=== PATIENT | female | born 1965 | race Caucasian/White ===

== ENCOUNTER → 2017-09-14 | Outpatient (CLI) | payer OTHER ==
[~2017-09-14] MED LIST: Aspirin EC325 MG PO; SOTO80 PO; Tambocor100 MG PO
== END | disposition home or self-care (01) ==
LOC: LAB 12:00 → LAB SHORT 12:00
PROVIDERS: Nurse Practitioner
DX: Z01.419 Encounter for gynecological examination (general) (routine) without abnormal findings (principal)
CPT/HCPCS: G0145

== ENCOUNTER → 2018-03-14 | Outpatient (CLI) | payer OTHER | END | disposition home or self-care (01) | LOC: LAB SHORT 08:45 → LAB EV 08:45 | DX: N39.0 Urinary tract infection, site not specified (principal) | CPT/HCPCS: 87086 ==

== ENCOUNTER → 2019-07-17 | Outpatient (CLI) | payer OTHER, BC | LOC: LAB SHORT 18:50 → LAB 18:50 | DX: R30.0 Dysuria (principal) | CPT/HCPCS: 87086 ==

== ENCOUNTER 2019-09-07 05:52 | Day surgery (SDC) | payer OTHER, BC ==
[~2019-09-07] VITALS: Ht 170.2 cm; Wt 71.4 kg
[~2019-09-07 05:52] MED LIST changes: +FEROSUL PO
--- NOTE | 2019-09-07 07:24 | NUR ---
"DAY SURGERY RN | TO OR BOTH DOCTORS AND CYTOMETRY TECHNOLOGIST RN HAVE SEEN PATIENT. REPORT TO SHIVANI SRIVASTAVA. NO ISSUES. TO OR."
--- NOTE | 2019-09-07 09:02 | NUR ---
RX COPIED, PLACED IN CHART, GIVEN TO FAMILY.
--- NOTE | 2019-09-07 10:12 | NUR ---
Discharge instructions reviewed with patient. Patient verbalizes understanding. Copy given to patient to take home. ABD DRG C/D/I TO UMBILICAL. Discharged via wheelchair to private car for ride home. DENIES NEED FOR PAIN MEDICATION.
== END 2019-09-07 10:10 | disposition home or self-care (01) ==
LOC: ORSCMMR 05:52 → ORD 07:30 → ORSCMMR 07:30
PROVIDERS: Surgery
PROC: 0WUF0JZ Supplement Abdominal Wall with Synthetic Substitute, Open Approach (ICD-10-PCS; principal; 2019-09-07 07:30)
DX: K42.0 Umbilical hernia with obstruction, without gangrene (principal)
CPT/HCPCS: C1781; J0690; J1100; J1885; J2250; J2370; J2405; J2704; J2765; J3010; J7120

== ENCOUNTER 2019-11-30 07:56 | Day surgery (SDC) | payer OTHER, BC ==
[~2019-11-30] VITALS: Ht 170.2 cm; Wt 69.7 kg
== END 2019-11-30 10:18 | disposition home or self-care (01) ==
LOC: ORSCSDS 07:56
PROVIDERS: Internal Medicine Gastroenterology
PROC: 0DB88ZX Excision of Small Intestine, Via Natural or Artificial Opening Endoscopic, Diagnostic (ICD-10-PCS; principal; 2019-11-30 09:15)
PROC: 0DJD8ZZ Inspection of Lower Intestinal Tract, Via Natural or Artificial Opening Endoscopic (ICD-10-PCS; principal; 2019-11-30 09:15)
PROC: 0DB68ZX Excision of Stomach, Via Natural or Artificial Opening Endoscopic, Diagnostic (ICD-10-PCS; principal; 2019-11-30 09:15)
DX: D50.9 Iron deficiency anemia, unspecified (principal); Z12.11 Encounter for screening for malignant neoplasm of colon; Z80.0 Family history of malignant neoplasm of digestive organs; Z86.010 Personal history of colon polyps; K44.9 Diaphragmatic hernia without obstruction or gangrene; K64.8 Other hemorrhoids; Z79.899 Other long term (current) drug therapy
CPT/HCPCS: 88305; 88342; J0330; J0461; J2405; J2704; J7120

== ENCOUNTER 2024-02-02 06:11 | Day surgery (SDC) | payer OTHER ==
[~2024-02-02] VITALS: Ht 170.2 cm; Wt 74.2 kg
[2024-02-02] VITALS (13 sets, daily range): BP systolic 116–137; BP diastolic 61–80
[~2024-02-02 06:11] MED LIST changes: +1/2 NS 250ml250 ML; +DOTTI1 EA18 TD; +JOINT HEALTH; +LOSA50 PO; +MELATONIN5 M1 PO; +MISO200 PO; +Norethindrone Ac5 MG PO; +TOCO1000; +VITAMIN D310 MC4; +[UNRECOGNIZED DRUG - OTHER]
[2024-02-02] MEDS ORDERED: CeFAZolin Sodium 2,000 MG in NS 100 ML IV SCH ×2 (06:25→14:00)
[2024-02-02] MEDS ORDERED: Lactated Ringer's 1,000 ML IV SCH ×2 (06:25→10:55)
[2024-02-02] MEDS ORDERED: CeFAZolin Sodium 2,000 MG VIAL ONE (06:40)
[2024-02-02] MEDS ORDERED: Sugammadex Sodium 200 MG/2ML SDV (100 MG/ML) ONE (07:01)
[2024-02-02] MEDS ORDERED: Midazolam HCl 1MG / ML 2ML Vial ONE (07:01)
[2024-02-02] MEDS ORDERED: propofoL 60 ML IV ONE (07:01)
[2024-02-02] MEDS ORDERED: FentaNYL Citrate 50 MCG/ML 2 ML Injection ONE (07:01)
--- NOTE | 2024-02-02 07:15 | NUR ---
History, Chart, Medications and Allergies reviewed before start of procedure. Lungs clear T/O to Auscultation. Patient confirms NPO status and agrees with scheduled surgery. Patient reports completing Chlorhexadine shower X2 prior to admission to hospital. Pre-Op teaching done. Pt verbalizes understanding.
[2024-02-02] MEDS ORDERED: Bupivacaine 0.5% HCl 5 MG/ML 30MLVIAL ONE (07:20)
[2024-02-02] MEDS ORDERED: ePHEDrine Sulfate 50 MG/ML 1ML Injection ONE (08:06)
[2024-02-02] MEDS ORDERED: Glycopyrrolate 0.2 MG/ML 5ML VIAL ONE (08:10)
[2024-02-02] MEDS ORDERED: HYDROmorphone HCl/Pf 1MG SYR ONE (08:24)
[2024-02-02] MEDS ORDERED: propofoL 40 ML IV ONE (09:22)
[2024-02-02] MEDS ORDERED: Acetaminophen 500MG/DP-Hydram 25MG HCL 1 Tab PO PRN (10:25)
[2024-02-02] MEDS ORDERED: FLU VACC TS2024-25(6MOS UP)/PF 45 MCG/0.5 ML SYRINGE IM PRN (10:50)
[2024-02-02] MEDS ORDERED: Promethazine HCl 25 MG Tab PO PRN (10:50)
[2024-02-02] MEDS ORDERED: HYDROmorphone HCl/Pf 1MG SYR IV PRN (10:50)
[2024-02-02] MEDS ORDERED: Naloxone HCl 0.4MG / ML 1ML Vial IV PRN (10:50)
[2024-02-02] MEDS ORDERED: Promethazine HCl 12.5 MG Supp PR PRN (10:50)
[2024-02-02] MEDS ORDERED: Simethicone 80 MG Chew PO PRN (10:55)
[2024-02-02] MEDS ORDERED: OxyCODONE 5 mg/Acetamin 325 mg TABLET PO PRN (10:55)
[2024-02-02] MEDS ORDERED: Ketorolac Tromethamine 30mg Vial IV PRN (11:00)
--- NOTE | 2024-02-02 18:45 | NUR ---
SHIFT SUMMARY POD0 TOTAL LAP HYSTER, A/OX4, VSS, TOLERATING PO, AMBULATING WELL, WAS ABLE TO VOID A SMALL AMOUT BUT WE HAVE BEEN TRACKING HER BLADDER VIA BLADDER SCANS. NO ACUTE EVENTS THIS SHIFT, CALL LIGHT IN REACH.
[2024-02-02] MEDS ORDERED: Ondansetron HCl 2 MG / ML 2ML Vial IV PRN (20:50)
[2024-02-02] MEDS ORDERED: Melatonin 5 MG Tablet PO SCH (21:00)
[2024-02-02] MEDS ORDERED: Flecainide Acetate 100 MG Tab PO SCH (21:00)
[2024-02-03 04:03] VITALS: BP 119/55
[2024-02-03 07:10] LABS: BASOPHILS ABSOLUTE AUTO 0.02 K/mm3 (0.00-0.23); BASOPHILS PERCENT AUTO 0 % (0-2); EOSINOPHILS PERCENT AUTO 0 % (0-6); Hematocrit 39.1 % (33.0-51.0); Hemoglobin 13.8 g/dL (11.5-16.0); IMMATURE GRAN ABSOLUTE AUTO 0.03 K/mm3 (0.00-0.10); IMMATURE GRAN PERCENT AUTO 0 % (0-1); LYMPHOCYTES ABSOLUTE AUTO 1.82 K/mm3 (0.84-5.20); LYMPHOCYTES PERCENT AUTO 18 % (21-46); MONOCYTES ABSOLUTE AUTO 0.61 K/mm3 (0.16-1.47); MONOCYTES PERCENT AUTO 6 % (4-13); Mean Corpuscular HGB 31.9 pg (26.0-34.0); Mean Corpuscular HGB Conc 35.3 g/dL (31.5-36.5); Mean Corpuscular Volume 91 fL (80-100); Mean Platelet Volume 10.8 fL (9.1-12.4); NEUTROPHILS ABSOLUTE AUTO 7.63 K/mm3 (1.96-9.15); NEUTROPHILS PERCENT AUTO 76 % (41-73); Platelet Count 164 K/mm3 (150-400); RDW Coefficient Variation 11.6 % (11.7-14.2); RDW Standard Deviation 38.4 fL (35.1-46.3); Red Blood Cell Count 4.32 M/mm3 (3.80-5.20); White Blood Cell Count 10.11 K/mm3 (4.00-11.30)
[2024-02-03 07:15] VITALS: BP 125/62
[2024-02-03] MEDS ORDERED: Losartan Potassium 50 MG Tab PO SCH (09:00)
[2024-02-03] MEDS ORDERED: Estradiol 1 MG Tab PO SCH (09:00)
[2024-02-03] MEDS ORDERED: BENADRYL25 MG PO (11:16)
[2024-02-03] MEDS ORDERED: SIME80CH PO (11:17)
[2024-02-03] MEDS ORDERED: PROM25 PO (11:17)
[2024-02-03] MEDS ORDERED: Percocet 5-3251 EACH PO (11:18)
--- NOTE | 2024-02-03 12:10 | NUR ---
DISCHARGE: PT DC TO HOME AT THIS TIME WITH SPOUSE. VERBALIZED UNDERSTANDING OF INSTRUCTIONS, FOLLOW UP AND MEDICATIONS. PT PREFILLED SCRIPTS PRIOR TO SURGERY. IV DC'D WNL. PT LEFT AMBULATORY TO CAR WITH BELONGINGS.
== END 2024-02-03 12:10 | disposition home or self-care (01) ==
LOC: ORSCMMR 06:11 → ORD 07:30 → ORSCMMR 10:56 → SURS 10:56 → ORSCMMR 02-03 12:10
PROVIDERS: Obstetrics & Gynecology
PROC: 0UT9FZZ Resection of Uterus, Via Natural or Artificial Opening With Percutaneous Endoscopic Assistance (ICD-10-PCS; principal; 2024-02-02 07:30)
PROC: 0UT7FZZ Resection of Bilateral Fallopian Tubes, Via Natural or Artificial Opening With Percutaneous Endoscopic Assistance (ICD-10-PCS; principal; 2024-02-02 07:30)
PROC: 0UT2FZZ Resection of Bilateral Ovaries, Via Natural or Artificial Opening With Percutaneous Endoscopic Assistance (ICD-10-PCS; principal; 2024-02-02 07:30)
DX: N95.0 Postmenopausal bleeding (principal); D25.0 Submucous leiomyoma of uterus; D25.9 Leiomyoma of uterus, unspecified; N80.352 Endometriosis of the left pelvic sidewall, unspecified depth; N80.3C1 Endometriosis of the right uterosacral ligament, unspecified depth; N80.03 Adenomyosis of the uterus; I10 Essential (primary) hypertension; I48.91 Unspecified atrial fibrillation; Z79.899 Other long term (current) drug therapy
CPT/HCPCS: 36415; 85025; 86850; 86900; 86901; 88305; 88307; 94762; A9270; J0690; J1171; J1885; J2250; J2405; J2704; J3010; J7120

== ENCOUNTER → 2024-05-26 | Outpatient (CLI) | payer OTHER ==
[~2024-05-26] MED LIST changes: +BENADRYL25 MG PO; +PROM25 PO; +Percocet 5-3251 EACH PO; +SIME80CH PO
== END ==
LOC: LAB 10:32 → LAB SHORT 10:32
DX: N39.0 Urinary tract infection, site not specified (principal)
CPT/HCPCS: 87077; 87086; 87186